=== PATIENT | female | born 1985 | race American Indian/Alaskan Native ===

== ENCOUNTER 2019-05-20 04:01 | Emergency (ER) | payer SELFPAY ==
[2019-05-20] MEDS ORDERED: TYLENOL ONE (04:06)
[2019-05-20] MEDS ORDERED: TYLENOL PO ONE (04:27)
[2019-05-20 04:41] LABS: Basophils % (Auto) 0.2 % (0.0-1.8); Eosinophils # (Auto) 0.1 K/mm3 (0.0-0.4); Eosinophils % (Auto) 1.7 % (0.0-4.3); Hemoglobin 10.8 gm/dl (10.1-14.3); Lymphocytes # (Auto) 2.3 K/mm3 (1.2-5.4); Lymphocytes % (Auto) 35.2 % (13.4-35.0); Mean Corpuscular HGB Conc 35 % (30-34); Mean Corpuscular Volume 100 fl (79-97); Monocytes # (Auto) 0.5 K/mm3 (0.0-0.8); Monocytes % (Auto) 7.2 % (0.0-7.3); Platelet Count 217 K/mm3 (140-440); Red Blood Count 3.12 M/mm3 (3.65-5.03); Red Cell Distribution Width 14.2 % (13.2-15.2)
--- NOTE | 2019-05-20 05:40 | Ultrasound Report ---
US OB >= 14 weeks Fetus INDICATION / CLINICAL INFORMATION: Vaginal bleeding. COMPARISON: None available. FINDINGS: A single live fetus of approximately 21 weeks 0 days gestational age is seen in cephalic presentation . VLADISLAV is normal at 7.5, heart rate 137 estimated birthweight 383 g. BPD is 5.1 equaling 21 weeks 4 days gestational age Head circumference is 18.2 equaling 20 weeks 4 days gestational age Abdominal circumference is 16.5 equaling 21 weeks 4 days gestational age Femur length is 3.2 equaling 20 weeks 0 days gestational age stomach, kidneys, bladder, diaphragm, heart, umbilical cord, spine and intracranial structures are grossly normal. IMPRESSION: Single live fetus of approximately 21 weeks 0 days gestational age in cephalic presentation. VLADISLAV is 7 .5, heart rate 137 and estimated birthweight 383 g. weight is in the 89th percentil e Signer Name: Kingston Maddox MD [email or web address] Signed: 05/20/2019 5:35 AM Workstation Name: [id number]
[2019-05-20 06:56] VITALS: BP 100/60
--- NOTE | 2019-05-20 07:03 | Emergency Department Report ---
ED Female HPI - General Chief complaint: Vaginal Bleeding Stated complaint: 19WK PREG/BLEEDING/ABD PAIN Time Seen by Provider: 05/20/19 06:49 Source: patient Mode of arrival: Wheelchair Limitations: No Limitations - History of Present Illness MD Complaint: vaginal bleeding (spotting for the last 2 days associated with some mild cramping) Radiation: non-radiating Severity scale (0 -10): 0 (currently, pain is 0 cramping kavon crease up to a 7) Consistency: intermittent Improves with: none Worsens with: none Are you Now?: No Associated Symptoms: vaginal discharge - Related Data Sexually active: Yes Allergies Allergy/AdvReac Type Severity Reaction Status Date / Time No Known Allergies Allergy Unverified 05/20/19 04:03 ED Review of Systems ROS: Stated complaint: 19WK PREG/BLEEDING/ABD PAIN Other details as noted in HPI Comment: All other systems reviewed and negative ED Past Medical Hx - Past Medical History Previous Medical History?: No - Surgical History Past Surgical History?: Yes Additional Surgical History: Cerclage - Social History Smoking Status: Never Smoker Substance Use Type: None ED Physical Exam - General Limitations: No Limitations General appearance: alert, in no apparent distress - Head Head exam: Present: atraumatic, normocephalic - Eye Eye exam: Present: normal appearance - ENT ENT exam: Present: mucous membranes moist - Neck Neck exam: Present: normal inspection - Respiratory Respiratory exam: Present: normal lung sounds bilaterally. Absent: respiratory distress - Cardiovascular Cardiovascular Exam: Present: regular rate, normal rhythm. Absent: systolic murmur, diastolic murmur, rubs, gallop - GI/Abdominal GI/Abdominal exam: Present: soft, normal bowel sounds - Extremities Exam Extremities exam: Present: normal inspection - Back Exam Back exam: Present: normal inspection - Neurological Exam Neurological exam: Present: alert, oriented X3 - Psychiatric Psychiatric exam: Present: normal affect, normal mood - Skin Skin exam: Present: warm, dry, intact, normal color. Absent: rash ED Course Vital Signs 05/20/19 05/20/19 04:08 06:54 Temperature 98 F 97.9 F Pulse Rate 71 63 Respiratory 18 16 Rate Blood Pressure 107/73 Blood Pressure 100/60 [Left] O2 Sat by Pulse 100 100 Oximetry ED Medical Decision Making - Lab Data Result diagrams: 07/28/19 04:19 - Medical Decision Making First 4-year-old female who ultrasound report shows that she is 21 weeks , heart rate 137 bpm with some spotting no acute distress. No urinary symptoms. [facility] is at [place] plan is for her to follow up with her ROAD [facility]ER for reevaluation of her current . Critical care attestation.: If time is entered above; I have spent that time in minutes in the direct care of this critically ill patient, excluding procedure time. ED Disposition Clinical Impression: Threatened in second trimester Disposition: DC-01 TO HOME OR SELFCARE Is pt being admited?: No Does the pt Need Aspirin: No Condition: Stable Instructions: Threatened Miscarriage (ED) Additional Instructions: Please be sure to follow up with your primary ROAD [facility]ER as we discussed for reevaluation of the cervix and the given urine new development of vaginal bleeding Referrals: [facility] [Provider Group] - 3-5 Days (Alternate [facility] clinic. It is best to follow her current ROAD GR[facility]ER and at [place])
== END 2019-05-20 08:08 | disposition home or self-care (01) ==
LOC: ED 04:01
DX: O20.0 Threatened abortion (principal); Z3A.21 21 weeks gestation of pregnancy
CPT/HCPCS: 36415; 76805; 84702; 85025; 86900; 86901